=== PATIENT | female | born 1990 | race Two or more races ===

== ENCOUNTER 2018-01-27 20:35 | Emergency (ER) | payer OTHER ==
[~2018-01-27] VITALS: Ht 167.6 cm; Wt 70.8 kg
== END 2018-01-27 21:39 | disposition home or self-care (01) ==
LOC: FSED 20:35
DX: S90.31XA Contusion of right foot, initial encounter (principal); W20.8XXA Other cause of strike by thrown, projected or falling object, initial encounter; Y92.008 Other place in unspecified non-institutional (private) residence as the place of occurrence of the external cause
CPT/HCPCS: 99283